=== PATIENT | male | born 1990 | race Caucasian/White ===

== ENCOUNTER 2021-01-07 02:21 | Emergency (ER) | payer OTHER ==
[~2021-01-07] VITALS: Ht 190.5 cm; Wt 158.8 kg
[~2021-01-07 02:21] MED LIST: MELATONIN3 MG PO; NAPROXEN500 MG PO; REMERON15 MG PO; REMERON30 MG PO; SERTRALINE HCL50 MG PO; ZOLOFT100 MG PO
[2021-01-07] MEDS ORDERED: MINIPRESS2 MG PO (02:49)
[2021-01-07] MEDS ORDERED: FLUVOXAMINE MA150 MG PO (02:49)
== END 2021-01-07 03:22 | disposition home or self-care (01) ==
LOC: ED 02:21
PROC: 0HQEXZZ Repair Left Lower Arm Skin, External Approach (ICD-10-PCS; principal; 2021-01-07)
PROC: 0HQDXZZ Repair Right Lower Arm Skin, External Approach (ICD-10-PCS; 2021-01-07)
DX: S51.812A Laceration without foreign body of left forearm, initial encounter (principal); S51.811A Laceration without foreign body of right forearm, initial encounter; F90.9 Attention-deficit hyperactivity disorder, unspecified type; W26.8XXA Contact with other sharp object(s), not elsewhere classified, initial encounter; Z87.891 Personal history of nicotine dependence; Z88.0 Allergy status to penicillin; Z91.040 Latex allergy status; Z79.899 Other long term (current) drug therapy
CPT/HCPCS: 12001; 99282-25